=== PATIENT | male | born 1955 | race Two or more races ===

== ENCOUNTER 2020-03-09 11:14 | Inpatient (IN) | payer OTHER ==
[~2020-03-09] VITALS: Ht 177.8 cm; Wt 82.2 kg
[2020-03-09 12:00] LABS: Basophils # (auto) 0 10 ^3/uL (0-0.2); Basophils % (auto) 0.5 % (0.0-2.0); Eosinophils # (auto) 0.1 10 ^3/uL (0-0.8); Eosinophils % (auto) 0.8 % (0.0-7.0); Lymphocytes # (auto) 0.8 10 ^3/uL (0.4-5.4); Lymphocytes % (auto) 11.7 % (10.0-50.0); Mean Corpuscular Hemoglobin 33.2 pg (28.0-32.0); Mean Corpuscular Hgb Conc. 33.4 g/dL (32.0-36.0); Mean Corpuscular Volume 99.5 fL (80.0-100.0); Monocytes # (auto) 0.6 10 ^3/uL (0-1.3); Monocytes % (auto) 9.5 % (0.0-12.0); Neutrophils # (auto) 5.1 10 ^3/uL (1.6-8.6); Neutrophils % (auto) 77.5 % (37.0-80.0); Nucleated Red Blood Cells % 0.1 %; Platelet Count (auto) 228 10^3/uL (140-450); Red Blood Cells 3.92 10^6/uL (4.5-5.90); Red Cell Distribution Width 13.2 % (11.8-14.3); White Blood Cell 6.6 10^3/uL (4.4-10.8)
[2020-03-09 12:37] LABS: Albumin 2.7 g/dL (3.4-5.0); Calcium 8.5 mg/dL (8.5-10.1); Potassium 4.4 mmol/L (3.5-5.1)
[2020-03-09 12:44] LABS: Bilirubin, Total 0.7 mg/dL (0.2-1.0)
[2020-03-09] MEDS ORDERED: ASCORBIC ACID 500 MG TAB PO ONE (13:00)
[2020-03-09] MEDS ORDERED: DexAMETHasone SOD PHOS 10MG/1ML VIAL INJ IV ONE (13:00)
[2020-03-09] MEDS ORDERED: PANTOPRAZOLE 40 MG/10 ML VIAL INJ IV ONE (13:00)
[2020-03-09] MEDS ORDERED: ENOXAPARIN SOD 100 MG/1 ML SYRINGE SC ONE ×2 (13:00→14:15)
[2020-03-09] MEDS ORDERED: ZINC SULFATE 220mg CAP or TAB PO ONE (13:00)
[2020-03-09] MEDS ORDERED: DOXYCYCLINE 100MG/250ML 250 ML IV ONE (13:15)
[2020-03-09] MEDS ORDERED: LORazepam 2MG/ML-1ML VIAL IV PRN (14:15)
[2020-03-09] MEDS ORDERED: LACTATED RINGER'S 2,450 ML IV ONE (14:15)
[2020-03-09] MEDS ORDERED: NITROGLYCERIN 0.4 MG SL TAB SL PRN (14:15)
[2020-03-09] MEDS ORDERED: VANCOMYCIN PER PHARMACY 1,000 MG IV SCH (14:15)
[2020-03-09] MEDS ORDERED: MORPHINE SULF INJ 2 MG/ML SYRINGE 1ML IV PRN (14:15)
[2020-03-09] MEDS ORDERED: MORPHINE SULFATE 4 MG/ML SYR/VIAL IV PRN (14:15)
[2020-03-09 14:38] LABS: INR 0.96 (0.9-1.15); Partial Thromboplastin Time 33.6 sec (23.64-32.05)
[2020-03-09] MEDS ORDERED: VANCOMYCIN 1GM/250ML 250 ML IV ONE (15:00)
[2020-03-09 16:20] VITALS: BP 132/79
[2020-03-09 17:00] VITALS: BP 132/79
[2020-03-09] MEDS: HYDROCORTISONE SOD SUCC 100 MG/2ML INJ VIAL IV SCH (17:30)
[2020-03-09] MEDS: PIPERACILLIN-TAZOB 3.375GM 100 ML IV SCH (17:30)
[2020-03-09] MEDS ORDERED: PIPERACILLIN-TAZOB 3.375GM 3.375 GM in D5W 5% 100 ML IV SCH (18:00)
[2020-03-09 18:05] LABS: Magnesium 2.1 mg/dL (1.6-2.6)
[2020-03-09 18:12] LABS: Urine Bacteria NONE SEEN /hpf (None Seen); Urine Blood Negative /uL (Negative); Urine Specific Gravity 1.005 (1.001-1.035); Urine WBC <1 /hpf (0 - 3)
[2020-03-09 22:00] VITALS: BP 132/79
[2020-03-09] MEDS: FAMOTIDINE (10MG/ML) 2ML VL IV SCH (22:38)
[2020-03-09] MEDS: ENOXAPARIN SOD 80 MG/0.8ML SYRINGE SC SCH (22:38)
[2020-03-10] MEDS: SODIUM CHLORIDE 0.9% 1,000 ML IV SCH ×3 (01:30→18:05)
[2020-03-10] MEDS ORDERED: FUROSEMIDE 20 MG/2 ML VIAL IV ONE (01:30)
[2020-03-10] MEDS ORDERED: FOLIC ACID 1 MG TAB PO ONE (01:45)
[2020-03-10] MEDS ORDERED: MULTIPLE VITAMIN TAB PO ONE (01:45)
[2020-03-10] MEDS ORDERED: THIAMINE HCL 100 MG TAB PO ONE (01:45)
[2020-03-10] MEDS: VANCOMYCIN 1GM/250ML 250 ML IV SCH ×2 (05:00→17:00)
[2020-03-10 05:36] VITALS: BP 156/101
[2020-03-10] MEDS ORDERED: FUROSEMIDE 20 MG/2 ML VIAL IV SCH (06:00)
[2020-03-10] MEDS: HYDROCORTISONE SOD SUCC 100 MG/2ML INJ VIAL IV SCH ×5 (06:00→23:56)
[2020-03-10] MEDS: PIPERACILLIN-TAZOB 3.375GM 100 ML IV SCH ×5 (06:00→23:56)
[2020-03-10 08:00] VITALS: BP 154/100
[2020-03-10 08:18] LABS: Basophils # (auto) 0 10 ^3/uL (0-0.2); Eosinophils # (auto) 0 10 ^3/uL (0-0.8); Hematocrit 37.9 % (41.0-53.0); Hemoglobin 12.7 g/dL (13.5-17.5); Lymphocytes # (auto) 0.5 10 ^3/uL (0.4-5.4); Lymphocytes % (auto) 6.6 % (10.0-50.0); Mean Corpuscular Hemoglobin 33.5 pg (28.0-32.0); Mean Corpuscular Hgb Conc. 33.6 g/dL (32.0-36.0); Mean Corpuscular Volume 99.6 fL (80.0-100.0); Monocytes # (auto) 0.6 10 ^3/uL (0-1.3); Monocytes % (auto) 7.9 % (0.0-12.0); Neutrophils # (auto) 6.6 10 ^3/uL (1.6-8.6); Neutrophils % (auto) 85.5 % (37.0-80.0); Nucleated Red Blood Cells % 0.1 %; Platelet Count (auto) 259 10^3/uL (140-450); Red Cell Distribution Width 13.4 % (11.8-14.3); White Blood Cell 7.7 10^3/uL (4.4-10.8)
[2020-03-10 08:30] VITALS: BP 155/85
[2020-03-10 08:36] LABS: Albumin 2.5 g/dL (3.4-5.0); BUN/Creatinine Ratio 13.6; Calcium 8.6 mg/dL (8.5-10.1); INR 1.02 (0.9-1.15); Magnesium 2.2 mg/dL (1.6-2.6); Partial Thromboplastin Time 35.5 sec (23.64-32.05); Phosphorus 3.2 mg/dL (2.5-4.90)
[2020-03-10 08:42] LABS: Bilirubin, Total 0.6 mg/dL (0.2-1.0); Total Protein 6.9 g/dL (6.4-8.2)
[2020-03-10] MEDS: FAMOTIDINE (10MG/ML) 2ML VL IV SCH ×2 (10:22→22:09)
[2020-03-10] MEDS: FOLIC ACID 1 MG TAB PO SCH (10:22)
[2020-03-10] MEDS: THIAMINE HCL 100 MG TAB PO SCH (10:23)
[2020-03-10] MEDS: MULTIPLE VITAMIN TAB PO SCH (10:24)
[2020-03-10] MEDS: METOPROLOL TARTRATE 25 MG TAB PO SCH ×2 (10:24→22:10)
[2020-03-10] MEDS: ENOXAPARIN SOD 80 MG/0.8ML SYRINGE SC SCH ×2 (10:25→22:11)
[2020-03-10] MEDS: LISINOPRIL 10 MG TAB PO SCH (10:25)
[2020-03-10 11:26] LABS: Cholesterol 129 mg/dL (< 200)
[2020-03-10 11:30] LABS: HDL Cholesterol 36 mg/dL (40-59); LDL Cholesterol 84 mg/dL (< 100); Triglycerides 96 mg/dL (< 150)
[2020-03-10 12:00] VITALS: BP 119/81
[2020-03-10 22:00] VITALS: BP 117/75
[2020-03-10] MEDS ORDERED: ALPRAZolam 0.5 MG TAB PO PRN (22:00)
[2020-03-11] VITALS (7 sets, daily range): BP systolic 126–155; BP diastolic 79–105
[2020-03-11] MEDS: SODIUM CHLORIDE 0.9% 1,000 ML IV SCH ×2 (02:44→10:04)
[2020-03-11] MEDS: VANCOMYCIN 1GM/250ML 250 ML IV SCH (05:00)
[2020-03-11] MEDS: HYDROCORTISONE SOD SUCC 100 MG/2ML INJ VIAL IV SCH ×3 (05:17→13:44)
[2020-03-11] MEDS: PIPERACILLIN-TAZOB 3.375GM 100 ML IV SCH ×2 (05:43→13:44)
[2020-03-11] MEDS: FAMOTIDINE (10MG/ML) 2ML VL IV SCH ×2 (10:04→22:08)
[2020-03-11] MEDS: THIAMINE HCL 100 MG TAB PO SCH (10:05)
[2020-03-11] MEDS: FOLIC ACID 1 MG TAB PO SCH (10:05)
[2020-03-11] MEDS: MULTIPLE VITAMIN TAB PO SCH (10:06)
[2020-03-11] MEDS: LISINOPRIL 10 MG TAB PO SCH (10:08)
[2020-03-11] MEDS: METOPROLOL TARTRATE 25 MG TAB PO SCH ×2 (10:08→22:09)
[2020-03-11] MEDS: ENOXAPARIN SOD 80 MG/0.8ML SYRINGE SC SCH ×2 (10:09→22:09)
[2020-03-11 10:16] LABS: Basophils # (auto) 0 10 ^3/uL (0-0.2); Basophils % (auto) 0.1 % (0.0-2.0); Eosinophils # (auto) 0 10 ^3/uL (0-0.8); Hematocrit 40.7 % (41.0-53.0); Hemoglobin 13.4 g/dL (13.5-17.5); Lymphocytes # (auto) 0.9 10 ^3/uL (0.4-5.4); Lymphocytes % (auto) 8.3 % (10.0-50.0); Mean Corpuscular Hemoglobin 33.1 pg (28.0-32.0); Mean Corpuscular Volume 100.3 fL (80.0-100.0); Monocytes # (auto) 1.3 10 ^3/uL (0-1.3); Monocytes % (auto) 11.6 % (0.0-12.0); Neutrophils # (auto) 9.2 10 ^3/uL (1.6-8.6); Platelet Count (auto) 302 10^3/uL (140-450); Red Blood Cells 4.06 10^6/uL (4.5-5.90); Red Cell Distribution Width 13.4 % (11.8-14.3); White Blood Cell 11.5 10^3/uL (4.4-10.8)
[2020-03-11 10:36] LABS: Potassium 3.6 mmol/L (3.5-5.1)
[2020-03-11 10:49] LABS: BUN/Creatinine Ratio 14.3; CRP High Sensitivity 7.27 mg/dL (< 0.3)
[2020-03-11] MEDS ORDERED: VANCOMYCIN 1GM/250ML 250 ML IV SCH (13:00)
[2020-03-11] MEDS: ALBUTEROL SULF HFA 90MCG INH 200DOSE IN SCH ×3 (17:15→23:11)
[2020-03-11] MEDS ORDERED: IPRATROPIUM BROM 0.5 MG/2.5ML INH SOL NEB SCH (17:15)
[2020-03-11] MEDS: ASCORBIC ACID 500 MG TAB PO SCH (17:15)
[2020-03-11] MEDS: DOXYCYCLINE 100 MG TAB/CAP PO SCH (22:08)
[2020-03-11] MEDS: methylPREDNISolone SOD SUCC 40 MG/ML VL IV SCH (22:09)
[2020-03-11] MEDS ORDERED: ALBUTEROL SULFATE 90 MCG MDI IN ONE (22:21)
[2020-03-12 05:00] VITALS: BP 137/76
[2020-03-12 07:08] LABS: BUN/Creatinine Ratio 23.5; Calcium 8.7 mg/dL (8.5-10.1); Potassium 3.9 mmol/L (3.5-5.1)
[2020-03-12] MEDS: ALBUTEROL SULF HFA 90MCG INH 200DOSE IN SCH ×3 (07:30→22:48)
[2020-03-12 07:43] LABS: CRP High Sensitivity 5.64 mg/dL (< 0.3)
[2020-03-12 08:00] VITALS: BP 146/96
[2020-03-12 09:00] VITALS: BP 146/96
[2020-03-12] MEDS: FAMOTIDINE (10MG/ML) 2ML VL IV SCH ×2 (10:00→22:47)
[2020-03-12] MEDS: methylPREDNISolone SOD SUCC 40 MG/ML VL IV SCH ×3 (10:00→22:48)
[2020-03-12] MEDS: FOLIC ACID 1 MG TAB PO SCH (10:00)
[2020-03-12] MEDS: THIAMINE HCL 100 MG TAB PO SCH (10:01)
[2020-03-12] MEDS: METOPROLOL TARTRATE 25 MG TAB PO SCH ×2 (10:02→22:48)
[2020-03-12] MEDS: MULTIPLE VITAMIN TAB PO SCH (10:03)
[2020-03-12] MEDS: ASCORBIC ACID 500 MG TAB PO SCH (10:04)
[2020-03-12] MEDS: DOXYCYCLINE 100 MG TAB/CAP PO SCH ×2 (10:04→22:48)
[2020-03-12] MEDS: LISINOPRIL 10 MG TAB PO SCH (10:06)
[2020-03-12] MEDS: ENOXAPARIN SOD 80 MG/0.8ML SYRINGE SC SCH (10:07)
[2020-03-12 12:04] LABS: Basophils # (auto) 0 10 ^3/uL (0-0.2); Basophils % (auto) 0.1 % (0.0-2.0); Eosinophils # (auto) 0 10 ^3/uL (0-0.8); Hematocrit 37.3 % (41.0-53.0); Hemoglobin 12.7 g/dL (13.5-17.5); Lymphocytes # (auto) 0.8 10 ^3/uL (0.4-5.4); Lymphocytes % (auto) 8.8 % (10.0-50.0); Mean Corpuscular Hemoglobin 33.6 pg (28.0-32.0); Mean Corpuscular Hgb Conc. 33.9 g/dL (32.0-36.0); Mean Corpuscular Volume 99.2 fL (80.0-100.0); Monocytes # (auto) 1.2 10 ^3/uL (0-1.3); Neutrophils # (auto) 7.2 10 ^3/uL (1.6-8.6); Neutrophils % (auto) 78.1 % (37.0-80.0); Nucleated Red Blood Cells % 0.1 %; Platelet Count (auto) 332 10^3/uL (140-450); Red Blood Cells 3.77 10^6/uL (4.5-5.90); Red Cell Distribution Width 13.4 % (11.8-14.3); White Blood Cell 9.3 10^3/uL (4.4-10.8)
[2020-03-12 13:00] VITALS: BP 128/69
[2020-03-12 17:00] VITALS: BP 134/75
[2020-03-12] MEDS: diphenhdrAMINE HCL 50 MG/1 ML VL IV SCH (18:09)
[2020-03-12] MEDS: ACETAMINOPHEN 650 mg PER 20 mL UD PO SCH (18:12)
[2020-03-12] MEDS: TOCILIZUMAB 400 MG in SODIUM CHL 0.9% 80 ML IV SCH (18:42)
[2020-03-12] MEDS ORDERED: SODIUM CHLORIDE 0.9% 500 ML IV ONE (20:15)
[2020-03-12 22:00] VITALS: BP 146/96
[2020-03-13 05:00] VITALS: BP 159/74
[2020-03-13] MEDS: ALBUTEROL SULF HFA 90MCG INH 200DOSE IN SCH ×3 (07:17→22:46)
[2020-03-13 08:00] VITALS: BP 146/69
[2020-03-13] MEDS: methylPREDNISolone SOD SUCC 40 MG/ML VL IV SCH ×3 (08:26→22:46)
[2020-03-13] MEDS: ACETAMINOPHEN 650 mg PER 20 mL UD PO SCH (08:26)
[2020-03-13] MEDS: diphenhdrAMINE HCL 50 MG/1 ML VL IV SCH (08:26)
[2020-03-13 09:00] VITALS: BP 146/69
[2020-03-13] MEDS: TOCILIZUMAB 400 MG in SODIUM CHL 0.9% 80 ML IV SCH (09:00)
[2020-03-13 09:49] LABS: Basophils # (auto) 0 10 ^3/uL (0-0.2); Basophils % (auto) 0.1 % (0.0-2.0); Eosinophils # (auto) 0 10 ^3/uL (0-0.8); Hematocrit 38.2 % (41.0-53.0); Hemoglobin 12.8 g/dL (13.5-17.5); Lymphocytes # (auto) 0.8 10 ^3/uL (0.4-5.4); Lymphocytes % (auto) 6.8 % (10.0-50.0); Mean Corpuscular Hemoglobin 33.2 pg (28.0-32.0); Mean Corpuscular Hgb Conc. 33.5 g/dL (32.0-36.0); Mean Corpuscular Volume 99.2 fL (80.0-100.0); Monocytes # (auto) 1.2 10 ^3/uL (0-1.3); Monocytes % (auto) 10.7 % (0.0-12.0); Neutrophils # (auto) 9.3 10 ^3/uL (1.6-8.6); Neutrophils % (auto) 82.4 % (37.0-80.0); Nucleated Red Blood Cells % 0.1 %; Platelet Count (auto) 412 10^3/uL (140-450); Red Blood Cells 3.84 10^6/uL (4.5-5.90); Red Cell Distribution Width 13.6 % (11.8-14.3); White Blood Cell 11.3 10^3/uL (4.4-10.8)
[2020-03-13 10:05] LABS: Potassium 3.7 mmol/L (3.5-5.1)
[2020-03-13 10:17] LABS: CRP High Sensitivity 2.71 mg/dL (< 0.3); Calcium 8.9 mg/dL (8.5-10.1)
[2020-03-13] MEDS: FAMOTIDINE (10MG/ML) 2ML VL IV SCH ×2 (10:20→22:46)
[2020-03-13] MEDS: FOLIC ACID 1 MG TAB PO SCH (10:20)
[2020-03-13] MEDS: THIAMINE HCL 100 MG TAB PO SCH (10:22)
[2020-03-13] MEDS: DOXYCYCLINE 100 MG TAB/CAP PO SCH ×2 (10:23→22:46)
[2020-03-13] MEDS: METOPROLOL TARTRATE 25 MG TAB PO SCH ×2 (10:23→22:51)
[2020-03-13] MEDS: ASCORBIC ACID 500 MG TAB PO SCH (10:23)
[2020-03-13] MEDS: LISINOPRIL 10 MG TAB PO SCH (10:24)
[2020-03-13] MEDS: ENOXAPARIN SOD 40 MG/0.4 ML SYRINGE SC SCH (10:25)
[2020-03-13 13:00] VITALS: BP 155/83
[2020-03-13 17:00] VITALS: BP 164/85
[2020-03-13 22:00] VITALS: BP 153/99
[2020-03-14] VITALS (7 sets, daily range): BP systolic 129–146; BP diastolic 59–93
[2020-03-14] MEDS: ALBUTEROL SULF HFA 90MCG INH 200DOSE IN SCH ×5 (02:25→18:56)
[2020-03-14 07:16] LABS: Hematocrit 39.3 % (41.0-53.0); Hemoglobin 13.2 g/dL (13.5-17.5); Mean Corpuscular Hemoglobin 33.5 pg (28.0-32.0); Mean Corpuscular Hgb Conc. 33.5 g/dL (32.0-36.0); Mean Corpuscular Volume 99.9 fL (80.0-100.0); Platelet Count (auto) 436 10^3/uL (140-450); Red Blood Cells 3.94 10^6/uL (4.5-5.90); Red Cell Distribution Width 13.4 % (11.8-14.3); White Blood Cell 11.2 10^3/uL (4.4-10.8)
[2020-03-14 07:29] LABS: Calcium 8.7 mg/dL (8.5-10.1); Potassium 3.8 mmol/L (3.5-5.1)
[2020-03-14 07:39] LABS: Basophils % (manual) 0 (0.0-2.0); Blast Cells 0; Eosinophils % (manual) 0 (0-7); Promyelocytes % 0; Reactive Lymphocytes 0
[2020-03-14 07:40] LABS: BUN/Creatinine Ratio 22.2; CRP High Sensitivity 1.47 mg/dL (< 0.3)
[2020-03-14 08:58] LABS: Band Neutrophils % (manual) 1; Lymphocytes % (manual) 7 (10.0-50.0); Metamyelocytes % 2; Monocytes % (manual) 2 (0-12)
[2020-03-14 08:59] LABS: Myelocytes % 2
[2020-03-14] MEDS: methylPREDNISolone SOD SUCC 40 MG/ML VL IV SCH ×2 (10:09→22:48)
[2020-03-14] MEDS: FOLIC ACID 1 MG TAB PO SCH (10:09)
[2020-03-14] MEDS: FAMOTIDINE (10MG/ML) 2ML VL IV SCH ×2 (10:09→22:48)
[2020-03-14] MEDS: THIAMINE HCL 100 MG TAB PO SCH (10:10)
[2020-03-14] MEDS: METOPROLOL TARTRATE 25 MG TAB PO SCH ×2 (10:11→22:48)
[2020-03-14] MEDS: DOXYCYCLINE 100 MG TAB/CAP PO SCH ×2 (10:11→22:48)
[2020-03-14] MEDS: LISINOPRIL 10 MG TAB PO SCH (10:12)
[2020-03-14] MEDS: ASCORBIC ACID 500 MG TAB PO SCH (10:12)
[2020-03-14] MEDS: ENOXAPARIN SOD 40 MG/0.4 ML SYRINGE SC SCH (10:13)
[2020-03-15] MEDS: ALBUTEROL SULF HFA 90MCG INH 200DOSE IN SCH (02:53)
[2020-03-15 05:43] VITALS: BP 128/77
[2020-03-15] MEDS ORDERED: ALBUTEROL SULF HFA 90MCG INH 200DOSE IN SCH (06:00)
[2020-03-15 08:00] VITALS: BP 128/84
[2020-03-15 09:00] VITALS: BP 128/84
[2020-03-15] MEDS: FAMOTIDINE (10MG/ML) 2ML VL IV SCH (10:06)
[2020-03-15] MEDS: methylPREDNISolone SOD SUCC 40 MG/ML VL IV SCH (10:07)
[2020-03-15] MEDS: FOLIC ACID 1 MG TAB PO SCH (10:08)
[2020-03-15] MEDS: THIAMINE HCL 100 MG TAB PO SCH (10:10)
[2020-03-15] MEDS: METOPROLOL TARTRATE 25 MG TAB PO SCH (10:11)
[2020-03-15] MEDS: DOXYCYCLINE 100 MG TAB/CAP PO SCH (10:11)
[2020-03-15] MEDS: ASCORBIC ACID 500 MG TAB PO SCH (10:12)
[2020-03-15] MEDS: LISINOPRIL 10 MG TAB PO SCH (10:14)
[2020-03-15] MEDS: ENOXAPARIN SOD 40 MG/0.4 ML SYRINGE SC SCH (10:15)
[2020-03-15] MEDS ORDERED: PRED20TA2 PO (12:09)
[2020-03-15] MEDS ORDERED: FOLI1TAB6 PO (12:09)
[2020-03-15] MEDS ORDERED: MET25T PO (12:09)
[2020-03-15] MEDS ORDERED: THIA100T10 PO (12:09)
[2020-03-15] MEDS ORDERED: LISI10TA6 PO (12:09)
[2020-03-15] MEDS ORDERED: DOX100T PO (12:09)
[2020-03-15] MEDS ORDERED: ALBUAER3 IN (12:09)
[2020-03-15] MEDS ORDERED: IPRA0.00 NEB (12:09)
[2020-03-15 12:38] LABS: Hematocrit 41.6 % (41.0-53.0); Hemoglobin 13.7 g/dL (13.5-17.5); Mean Corpuscular Hemoglobin 33.4 pg (28.0-32.0); Mean Corpuscular Volume 101.2 fL (80.0-100.0); Platelet Count (auto) 495 10^3/uL (140-450); Red Blood Cells 4.11 10^6/uL (4.5-5.90); Red Cell Distribution Width 13.8 % (11.8-14.3); White Blood Cell 9.8 10^3/uL (4.4-10.8)
[2020-03-15 12:42] LABS: Basophils % (manual) 0 (0.0-2.0); Blast Cells 0; Eosinophils % (manual) 0 (0-7); Promyelocytes % 0; Reactive Lymphocytes 0
[2020-03-15 12:50] LABS: BUN/Creatinine Ratio 31.8; CRP High Sensitivity 0.82 mg/dL (< 0.3); Potassium 3.8 mmol/L (3.5-5.1)
[2020-03-15 12:55] VITALS: BP 139/84
[2020-03-15 13:24] LABS: Band Neutrophils % (manual) 2; Lymphocytes % (manual) 11 (10.0-50.0); Metamyelocytes % 2; Monocytes % (manual) 7 (0-12); Myelocytes % 1
== END 2020-03-15 03:00 | disposition home health service (06) | DRG 177 ==
LOC: ER 11:14 → TELE 11:15 → TELE-EAST 15:43
PROVIDERS: ADMIT Hospitalist; ATTEND Internal Medicine
DX: U07.1 COVID-19 (principal); J12.89 Other viral pneumonia; I21.A1 Myocardial infarction type 2; J96.01 Acute respiratory failure with hypoxia; E43 Unspecified severe protein-calorie malnutrition; E87.1 Hypo-osmolality and hyponatremia; E87.2 Acidosis; J98.11 Atelectasis; D50.9 Iron deficiency anemia, unspecified; D52.9 Folate deficiency anemia, unspecified; D63.8 Anemia in other chronic diseases classified elsewhere; E11.9 Type 2 diabetes mellitus without complications; I11.9 Hypertensive heart disease without heart failure; Z68.26 Body mass index [BMI] 26.0-26.9, adult; Z79.01 Long term (current) use of anticoagulants; Z79.4 Long term (current) use of insulin
CPT/HCPCS: 36415; 36600; 71045; 71275; 80048; 80053; 80061; 80202; 81001; 82728; 82805; 83036; 83605; 83615; 83735; 83880; 84100; 84443; 84484; 85007; 85025; 85027; 85379; 85610; 85730; 86141; 86850; 86900; 86901; 87040; 87070; 87086; 87804; 87880; 93005; 93970; 94640; 96372; 96374; 96375; C9113; G0378; J1100; J2543; J3490; J7060

== ENCOUNTER 2025-07-17 08:28 | Emergency (ER) | payer OTHER ==
[~2025-07-17] VITALS: Ht 162.6 cm; Wt 84.3 kg
[~2025-07-17 08:28] MED LIST: ALBUAER3 IN; DOX100T PO; FOLI-119 PO; IPRA0.00 NEB; LISI10TA34 PO; MET25T PO; PRED20TA2 PO; THIA100T10 PO
[2025-07-17 08:47] VITALS: TEMP 97.8
--- NOTE | 2025-07-17 08:50 | ED.PDOC ---
General HPI Comments A 70 YEAR OLD MALE PRESENTS TO THE ED WITH COMPLAINT OF LEFT FLANK PAIN. PATIENT STATES HE WOKE UP TODAY AND BEGAN EXPERIENCING LEFT FLANK PAIN WITH NAUSEA. PATIENT DENIES DYSURIA, HEMATURIA, FEVER, CHILLS, SHORTNESS OF BREATH, CHEST PAIN, ABDOMINAL PAIN, VOMITING, HEADACHE, OR OTHER COMPLAINTS. NO OTHER SYMPTOMS OR MODIFYING FACTORS AT THIS TIME. PATIENT IS ALERT, ORIENTED X 4, AND HAS STEADY GAIT. Chief Complaint: Flank Pain Time Seen by MD: 08:33 Primary Care Provider: JENNIFER Reviewed notes: Nurses Notes, Medications, Allergies Allergies: Coded Allergies: NO KNOWN ALLERGIES (Unverified , 05/04/12) Home Meds Active Scripts Folic Acid (Folic Acid) 1 Mg Tab, 1 MG PO DAILY, #30 TAB Prov:ANGELIQUE OCHAO MD 03/15/20 Prednisone (Prednisone) 20 Mg Tab, 1 DOSE PO UD, #13 TAB Take 60mg dailyx2 days then 40mg dailyx2 days then 20mg dailyx2 days then 10mg dailyx2 days Prov:ANGELIQUE OCHOA MD 03/15/20 Ipratropium-Albuterol (Ipratropium [place]/Albut) 1 Catherine Catherine, 1 CATHERINE NEB Q6HPRN PRN, #120 DOSE Prov:ANGELIQUE OCHOA MD 03/15/20 Albuterol Sulfate (VENTOLIN MDI) 90 Mcg Ih, 90 MCG IN Q6HPRN PRN, #1 INHALER Prov:ANGELIQUE OCHOA MD 03/15/20 Doxycycline Monohydrate (Doxycycline Monohydrate) 100 Mg Tab, 100 MG PO Q12HR, #6 TAB Prov:ANGELIQUE OCHOA MD 03/15/20 Lisinopril (Lisinopril) 10 Mg Tab, 10 MG PO DAILY, #30 TAB Prov:ANGELIQUE OCHOA MD 03/15/20 Thiamine Hcl (VITAMIN B-1) 100 Mg Tb, 50 MG PO DAILY, #30 TAB Prov:ANGELIQUE OCHOA MD 03/15/20 Metoprolol Tartrate (Lopressor) 25 Mg Tb, 12.5 MG PO BID, #60 TAB Prov:ANGELIQUE OCHOA MD 03/15/20 Information Source: Patient Mode of Arrival: Ambulatory Severity: Moderate Inability to void: None Timing: Hours Duration: Since onset Prehospital treatment: None Onset: Spontaneous Symptoms: Other (LEFT FLANK PAIN) History of: None Location: (L)Flank Penile discharge: None Modifying factors: None associated signs and symptoms: Nausea Past Medical History PAST MEDICAL HISTORY: HTN Past Medical History (Other): CHRONIC LOW BACK PAIN Surgical History: Appendectomy Family History Family History: No family hx of Cancer, No family hx of DM, No family hx of Heart howie Social History Smoker: Non-Smoker Alcohol: Occasionally Drugs: Denies Drug Use Lives In: Home Constitutional: denies: chills, diaphoresis, fatigue, fever, malaise, sweats, weakness, others EENTM: denies: blurred vision, double vision, ear bleeding, ear discharge, ear drainage, ear pain, ear ringing, eye pain, eye redness, hearing loss, mouth pain, mouth swelling, nasal discharge, nose bleeding, nose congestion, nose pain, photophobia, tearing, throat pain, throat swelling, voice changes, others Respiratory: denies: cough, hemoptysis, orthopnea, SOB at rest, shortness of breath, SOB with excertion, stridor, wheezing, others Cardiovascular: denies: chest pain, dizzy spells, diaphoresis, Dyspnea on exertion, edema, irregular heart beat, left arm pain, lightheadedness, palpitations, PND, syncope, others Gastrointestinal: denies: abdomen distended, abdominal pain, blood streaked bowels, constipated, diarrhea, dysphagia, difficulty swallowing, hematemesis, melena, nausea, poor appetite, poor fluid intake, rectal bleeding, rectal pain, vomiting, others Genitourinary: reports: flank pain (LEFT FLANK PAIN); denies: burning, dysuria, frequency, hematuria, incontinence, penile discharge, penile sore, pain, testicle pain, testicle swelling, urgency, others Neurological: denies: dizziness, fainting, headache, left sided numbness, left sided weakness, numbness, paresthesia, pre-existing deficit, right sided numbness, right sided weakness, seizure, speech problems, tingling, tremors, weakness, others Musculoskeletal: denies: back pain, gout, joint pain, joint swelling, muscle pain, muscle stiffness, neck pain, others Integumetry: denies: bruises, change in color, change in hair/nails, dryness, laceration, lesions, lumps, rash, wounds, others Allergic/Immunocompromised: denies: Difficulty Healing, Frequent Infections, Hives, Itching, others Hematologic/Lymphatic: denies: anemia, blood clots, easy bleeding, easy bruising, swollen glands, others Endocrine: denies: excessive hunger, excessive sweating, excessive thirst, excessive urination, flushing, intolerance to cold, intolerance to heat, unexplained weight gain, unexplained weight loss, others Psychiatric: denies: anxiety, bipolar disorder, depression, hopeless, panic disorder, schizophrenia, sleepless, suicidal, others All Other Systems: Reviewed and Negative Physical Exam General Appearance: No Apparent Distress, Normal HEENT: Normal ENT Inspection, PERRL/EOMI, Pharynx Normal, TMs Normal Neck: Full Range of Motion, Non-Tender, Normal, Normal Inspection Respiratory: Chest Non-Tender, Lungs Clear, No Accessory Muscle Use, No Respiratory Distress, Normal Breath Sounds Cardiovascular: No Edema, No JVD, No Murmur, No Gallop, Normal Peripheral Pulses, Regular Rate/Rhythm Breast Exam: Deferred Gastrointestinal: No Organomegaly, No Pulsatile Mass, Normal Bowel Sounds, Soft, Tenderness (LEFT FLANK, NO GUARDING AND REBOUND TENDERNESS, NO ACVA TENDERNESS. ) Genitalia: Deferred Pelvic: Deferred Rectal: Deferred Extremities: No calf tenderness, Normal capillary refill, Normal inspection, Normal range of motion, Non-tender, No pedal edema Musculoskeletal : Apperance: Normal Neurologic: Alert, first coat sander II-XII nml as Tested, No Motor Deficits, Normal Affect, Normal Mood, No Sensory Deficits Cerebellar Function: Normal Reflexes: Normal Skin: Dry, Normal Color, Warm Peripheral Pulses: 2+ carotid (R), 2+ carotid (L) Lymphatic: No Adenopathy Was a procedure done? Was a procedure done?: No Differential Diagnosis Kidney stone (Female): N/A Kidney stone (Male): DJD, Renal failure, Strain, Urolithiasis, Urinary tract infection Penile/Scrotal: N/A Urinary Problem (Male): Bladder Outlet, Prostatitis, Urethritis, Urinary Retention, Urolithiasis, UTI, N/A Urinary Problem (Female): N/A X-Ray, Labs, Meds, VS Vital Signs Date Time Temp Pulse Resp B/P (MAP) Pulse Ox O2 Delivery O2 Flow Rate FiO2 07/17/25 08:54 177/101 07/17/25 08:47 97.8 65 16 177/101 (126) 100 97.8 07/17/25 08:47 65 16 100 Room Air 07/17/25 08:36 97.5 67 16 158/90 100 97.5 Lab Test 07/17/25 10:56 07/17/25 09:29 Range/Units Urine Color Yellow Yellow Urine Clarity Clear Clear Urine pH 7.5 5.0-9.0 Urine Specific [place] 1.019 1.001-1.035 Urine Protein Negative Negative Urine Ketones Negative Negative Urine Blood 2+ H Negative /uL Urine Nitrite Negative Negative Urine Bilirubin Negative Negative Urine Urobilinogen Normal Negative mg/dL Urine Leukocyte Esterase Negative Negative /uL Urine RBC 67 0 - 3 /hpf Urine Microscopic WBC 2 0-3 /HPF Urine Squamous Epithelial Cells None seen <5 /hpf Urine Bacteria None seen None Seen /hpf Urine Mucus Few None Seen Urine Glucose Normal Normal mg/dL White Blood Count 10.9 H 4.4-10.8 10^3/uL Red Blood Count 4.50 4.5-5.90 10^6/uL Hemoglobin 12.2 L 13.5-17.5 g/dL Hematocrit 38.4 L 41.0-53.0 % Mean Corpuscular Volume 85.2 80.0-100.0 fL Mean Corpuscular Hemoglobin 27.1 L 28.0-32.0 pg Mean Corpuscular Hemoglobin Concent 31.8 L 32.0-36.0 g/dL Red Cell Distribution Width 14.9 H 11.8-14.3 % Platelet Count 279 140-450 10^3/uL Mean Platelet Volume 8.1 6.9-10.8 fL Neutrophils (%) (Auto) 77.9 37.0-80.0 % Lymphocytes (%) (Auto) 14.0 10.0-50.0 % Monocytes (%) (Auto) 6.5 0.0-12.0 % Eosinophils (%) (Auto) 1.4 0.0-7.0 % Basophils (%) (Auto) 0.2 0.0-2.0 % Neutrophils # (Auto) 8.5 1.6-8.6 10 ^3/uL Lymphocytes # (Auto) 1.5 0.4-5.4 10 ^3/uL Monocytes # (Auto) 0.7 0-1.3 10 ^3/uL Eosinophils # (Auto) 0.1 0-0.8 10 ^3/uL Basophils # (Auto) 0 0-0.2 10 ^3/uL Nucleated Red Blood Cells 0.0 % Sodium Level 141 136-145 mmol/L Potassium Level 3.8 3.5-5.1 mmol/L Chloride Level 105 98-107 mmol/L Carbon Dioxide Level 27 20-31 mmol/L Anion Gap 9 5-15 Blood Urea Nitrogen 16 9-23 mg/dL Creatinine 1.06 0.700-1.30 mg/dL Glomerular Filtration Rate Calc 75 >90 mL/min BUN/Creatinine Ratio 15.1 10.0-20.0 Serum Glucose 126 H 74-106 mg/dL Calcium Level 9.2 8.7-10.4 mg/dL Total Bilirubin 0.6 0.2-1.0 mg/dL Aspartate Amino Transferase (AST) 22 13-40 U/L Alanine Aminotransferase (ALT) 23 7-40 U/L Alkaline Phosphatase 81 46-116 U/L Total Protein 7.3 5.7-8.2 g/dL Albumin 4.4 3.2-4.8 g/dL Current Medications Medications (Trade) Dose Ordered Sig/Ondina Route Start Time Stop Time Status Last Admin Lisinopril (Zestril Tablet) 40 mg ONCE ONCE PO 07/17/25 09:00 07/17/25 09:01 DC 07/17/25 08:54 Exam: CT CT AB PEL WO CON-NO ORAL OR IV History: LEFT FLANK PAIN. Comparison Study: None. Technique: Multidetector spiral CT of the abdomen and pelvis was performed from lung bases to pubic symphysis. Imaging was performed without intravenous contrast. Coronal and sagittal multiplanar reformats were obtained from the axial data set by the technologist. Radiation Dose : 1. Abdomen/Pelvis: CTDIvol 16.63 mGy, DLP 837.68 mGy*cm. Findings: Evaluation of vasculature and solid organs is limited due to lack of intravenous contrast use. Lung Bases: Lung bases are clear. Visualized portions of the heart and pericardium are unremarkable. Subcentimeter calcified right hilar lymph nodes. Liver: The liver is normal in size. There is a 3.7 low-density lesion in the right hepatic lobe. There are smaller punctate hyperdense lesions in the liver. Diffusely hypoattenuating liver parenchyma consistent with hepatic steatosis. Gallbladder and Biliary Tree: The gallbladder is unremarkable. No intrahepatic or extrahepatic biliary ductal dilatation. Spleen: Unremarkable Pancreas: The pancreas is grossly unremarkable. Adrenal Glands: Unremarkable Kidneys: Mild left hydroureteronephrosis due to 1-2 mm obstructive calculus in the distal left ureter just proximal to the ureterovesical junction. Left renal cysts. Right kidney is unremarkable. GI tract: The stomach is grossly normal in appearance. No evidence of small bowel wall thickening or abnormal dilatation to suggest bowel obstruction. The colon is unremarkable. The appendix is not visualized, however no inflammatory changes in the right lower quadrant to suggest acute appendicitis. Peritoneum/mesentery/retroperitoneum. No evidence of free intraperitoneal air. No ascites. No evidence of suspicious lymphadenopathy. Abdominal Wall: Enlarged prostate measuring 5.3 cm. Vasculature: The visualized abdominal aorta is normal in size and caliber. Evaluation of abdominal and pelvic vessels is limited due to lack of intravenous contrast. There are atherosclerotic calcifications in the aorta. Urinary Bladder: Grossly unremarkable for degree of distention. Pelvic Organs: Unremarkable Musculoskeletal: No aggressive focal bony lesions, acute fractures or dislocation. Grade 1 anterolisthesis noted at L5-S1. IMPRESSION: 1. Mild left hydroureteronephrosis due to 1-2 mm obstructive calculus in the distal left ureter. 2. Prostatomegaly. ATED BY: IVÁN HARRIS MD DICTATED DATE/TIME: 07/17/25 1003 SIGNED BY: IVÁN HARRIS MD SIGNED DATE/TIME: 07/17/25 1003 CC: X-Ray, Labs, Meds, VS Comment EXTERNAL MEDICAL RECORDS REVIEWED: [NONE] INDEPENDENT HISTORIANS: [NONE] SOCIAL DETERMINANTS OF HEALTH: [NONE] LABS ORDERED: CBC, BMP, UA REVIEWED AND INTERPRETED RESULTS: BLOOD 2+ IMAGING ORDERED: CT ABD/PEL TREATMENTS ORDERED: LISINOPRIL 40 MG P.O. PROCEDURES PERFORMED: NONE CRITICAL CARE TIME: NONE I HAVE DISCUSSED THE PATIENT WITH THE ATTENDING PHYSICIAN DR. FITZGERALD AND HE AGREES WITH THE PATIENT'S PLAN OF CARE AND DISPOSITION. BASED ON HISTORY OF PRESENT ILLNESS, AND PHYSICAL EXAM, PATIENT WILL BE DISCHARGED HOME. DISCUSSED PLAN FOR DISCHARGE HOME WITH RX [FLOMAX]. MEDICATION WARNINGS GIVEN. PT HAS PAIN MEDICATION AT HOME. SHARED DECISION MAKING: PATIENT INSTRUCTED TO FOLLOW UP WITH PRIMARY CARE PROVIDER IN 1-2 DAYS FOR RE-EVALUATION OF SYMPTOMS. PATIENT VERBALIZES UNDERSTANDING TO RETURN TO ED FOR NEW OR WORSENING SYMPTOMS OR IF FOLLOW UP WITH PCP CANNOT BE OBTAINED. PATIENT FEELS COMFORTABLE GOING HOME AT THIS TIME. ALL QUESTIONS ADDRESSED AT TIME OF DISCHARGE. Images Reviewed?: Images reviewed and evaluated by me Time of 1ST Reevaluation: 11:47 Reevaluation 1ST: Improved Patient Education/Counseling: Diagnosis, Treatment, Need For Follow Up Family Education/Counseling: Diagnosis, Treatment, Need For Follow Up Medical Screening: No EMC Exist At This Time SEPSIS Sepsis Screen Date sepsis recognized/suspect: Jul 17, 2025 Time Sepsis recognized/suspect: 935 Recent Procedure: No On Antibiotic Therapy: No Respiratory Rate >20: No Heart Rate >90: No Temp<36 C (96.8 F) or >38.3 C: No SBP <90 or MAP <65 mmHG: No New Acute Mental Status Change: No Is the patient on CPAP, BIPAP,: No Physician Orders Ct Ab Pel Wo Con-No Oral Or Iv (07/17/25 08:47) Vital Signs Date Time Temp Pulse Resp B/P (MAP) Pulse Ox O2 Delivery O2 Flow Rate FiO2 07/17/25 08:54 177/101 07/17/25 08:47 97.8 65 16 177/101 (126) 100 97.8 07/17/25 08:47 65 16 100 Room Air 07/17/25 08:36 97.5 67 16 158/90 100 97.5 Laboratory Tests Test 07/17/25 09:29 White Blood Count 10.9 10^3/uL (4.4-10.8) H Medications Medications Dose Ordered Sig/Ondina Route Start Time Stop Time Status Last Admin Dose Admin Lisinopril 40 mg ONCE ONCE PO 07/17/25 09:00 07/17/25 09:01 DC 07/17/25 08:54 Departure 1 Departure Time of Disposition: 11:45 Impression: Primary Impression: Left renal stone Additional Impressions: BPH (benign prostatic hyperplasia) Qualified Codes: N40.0 - Benign prostatic hyperplasia without lower urinary tract symptoms HTN (hypertension) Qualified Codes: I10 - Essential (primary) hypertension Disposition: 01 HOME / SELF CARE / HOMELESS Condition: Stable Additional Instructions: FOLLOW-UP WITH PCP IN 1 TO 2 DAYS FOR REFERRAL TO UROLOGIST. TAKE MEDICATIONS PRESCRIBED. RETURN TO ED FOR ANY NEW OR WORSENING SYMPTOMS. e-Prescriptions Tamsulosin Hcl (Flomax) 0.4 Mg Cap 1 CAP PO DAILY, #30 CAP Prov: TANNER MADDEN 07/17/25 Discharged With: Self Critical Care Note Critical Care Time?: No Stability Stability form required: No I personally scribed for TANNER MADDEN ([email or web address]) on 07/17/25 at 08:50. Electronically submitted by Brian Langley ([email or web address]). I personally scribed for TANNER MADDEN ([email or web address]) on 07/17/25 at 10:13. Electronically submitted by Brian Langley ([email or web address]). I personally scribed for TANNER MADDEN ([email or web address]) on 07/17/25 at 11:36. Electronically submitted by Brian Langley ([email or web address]). TANNER MADDEN Jul 17, 2025 08:50
[2025-07-17] MEDS: LISINOPRIL 20 MG TAB PO ONE (08:54)
[2025-07-17 10:05] LABS: Hematocrit 38.4 % (41.0-53.0); Hemoglobin 12.2 g/dL (13.5-17.5); Mean Corpuscular Hemoglobin 27.1 pg (28.0-32.0); Mean Corpuscular Volume 85.2 fL (80.0-100.0); Nucleated Red Blood Cells % 0.0 %
--- NOTE | 2025-07-17 10:05 | DVH ---
Exam: CT CT AB PEL WO CON-NO ORAL OR IV History: LEFT FLANK PAIN. Comparison Study: None. Technique: Multidetector spiral CT of the abdomen and pelvis was performed from lung bases to pubic symphysis. Imaging was performed without intravenous contrast. Coronal and sagittal multiplanar reformats were obtained from the axial data set by the technologist. Radiation Dose : 1. Abdomen/Pelvis: CTDIvol 16.63 mGy, DLP 837.68 mGy*cm. Findings: Evaluation of vasculature and solid organs is limited due to lack of intravenous contrast use. Lung Bases: Lung bases are clear. Visualized portions of the heart and pericardium are unremarkable. Subcentimeter calcified right hilar lymph nodes. Liver: The liver is normal in size. There is a 3.7 low-density lesion in the right hepatic lobe. There are smaller punctate hyperdense lesions in the liver. Diffusely hypoattenuating liver parenchyma consistent with hepatic steatosis. Gallbladder and Biliary Tree: The gallbladder is unremarkable. No intrahepatic or extrahepatic biliary ductal dilatation. Spleen: Unremarkable Pancreas: The pancreas is grossly unremarkable. Adrenal Glands: Unremarkable Kidneys: Mild left hydroureteronephrosis due to 1-2 mm obstructive calculus in the distal left ureter just proximal to the ureterovesical junction. Left renal cysts. Right kidney is unremarkable. GI tract: The stomach is grossly normal in appearance. No evidence of small bowel wall thickening or abnormal dilatation to suggest bowel obstruction. The colon is unremarkable. The appendix is not visualized, however no inflammatory changes in the right lower quadrant to suggest acute appendicitis. Peritoneum/mesentery/retroperitoneum. No evidence of free intraperitoneal air. No ascites. No evidence of suspicious lymphadenopathy. Abdominal Wall: Enlarged prostate measuring 5.3 cm. Vasculature: The visualized abdominal aorta is normal in size and caliber. Evaluation of abdominal and pelvic vessels is limited due to lack of intravenous contrast. There are atherosclerotic calcifications in the aorta. Urinary Bladder: Grossly unremarkable for degree of distention. Pelvic Organs: Unremarkable Musculoskeletal: No aggressive focal bony lesions, acute fractures or dislocation. Grade 1 anterolisthesis noted at L5-S1. IMPRESSION: 1. Mild left hydroureteronephrosis due to 1-2 mm obstructive calculus in the distal left ureter. 2. Prostatomegaly.
[2025-07-17 10:23] LABS: Alanine Aminotransferase 23 U/L (7-40); Albumin 4.4 g/dL (3.2-4.8); Alkaline Phosphatase 81 U/L (46-116); Anion Gap 9 (5-15); BUN/Creatinine Ratio 15.1 (10.0-20.0); Blood Urea Nitrogen 16 mg/dL (9-23); Calcium 9.2 mg/dL (8.7-10.4); Carbon Dioxide 27 mmol/L (20-31); Chloride 105 mmol/L (98-107); Potassium 3.8 mmol/L (3.5-5.1); Sodium 141 mmol/L (136-145); Total Protein 7.3 g/dL (5.7-8.2)
[2025-07-17 10:24] LABS: Bilirubin, Total 0.6 mg/dL (0.2-1.0)
[2025-07-17 10:27] LABS: Glucose 126 mg/dL (74-106)
[2025-07-17 11:17] LABS: Urine Protein, UAD Negative (Negative)
[2025-07-17] MEDS ORDERED: TAMS-35 PO (11:42)
[2025-07-17 11:46] VITALS: BP 152/78; PULSE 65; RESP 16; O2SAT 100
[2025-07-18] MEDS ORDERED: TRAM50TA2 PO (16:45)
== END 2025-07-17 11:47 | disposition home or self-care (01) ==
LOC: ER 08:28
DX: N40.0 Benign prostatic hyperplasia without lower urinary tract symptoms (principal); N13.2 Hydronephrosis with renal and ureteral calculous obstruction; I10 Essential (primary) hypertension; F10.90 Alcohol use, unspecified, uncomplicated; G89.29 Other chronic pain; Z79.899 Other long term (current) drug therapy; Z90.49 Acquired absence of other specified parts of digestive tract
CPT/HCPCS: 36415; 74176; 80053; 81001; 85025

== ENCOUNTER 2025-07-18 08:23 | Observation (INO) | payer OTHER ==
[~2025-07-18] VITALS: Ht 165.1 cm; Wt 86.6 kg
[~2025-07-18 08:23] MED LIST changes: +TAMS-35 PO
--- NOTE | 2025-07-18 09:40 | ED.PDOC ---
GI ASSESSMENT HPI Comments Mr. Morales is 70 year old male prior medical history of arthritis and hypertension, presents today with chief complaint of left flank pain. The patient states pain began approximately 3 days ago and is described as sharp, constant and progressively worsening, radiating from the left flank towards left groin, intensity 10/10, associated with nausea, vomiting, shortness of breath due to pain, aggravated by lying still, and slightly relieved by tramadol. He denies fever, dysuria, hematuria, chest pain, palpitations, and diarrhea. He presented yesterday to the emergency room, where abdominal CT showed presence of mild left hydroureteronephrosis due to 1-2 mm obstructive calculus in the left distal ureter, with CBC and BMP within normal range, and UA significant for microhematuria. He was discharged with prescription for Flomax and recommendation to see his PCP for referral to Urology. However, due to persistence of pain, he returns for evaluation in the emergency department. On initial evaluation, the patient is uncomfortable due to pain, afebrile, hypertensive, other vitals within normal range, he is able to ambulate with limited difficulty, with no other overt signs of distress. Chief Complaint: Flank Pain Time Seen by MD: 08:56 Primary Care Provider: JENNIFER Allergies: Coded Allergies: NO KNOWN ALLERGIES (Unverified , 05/04/12) Home Meds Active Scripts Tramadol Hcl (Tramadol Hcl) 50 Mg Tab, 50 MG PO Q6HPRN PRN for 5 Days, #20 TAB 0 Refills Take as needed for severe pain. Prov:XIOMARA GARCIA DO 07/18/25 Tamsulosin Hcl (Flomax) 0.4 Mg Cap, 1 CAP PO DAILY, #30 CAP Prov:TANNER MADDEN 07/17/25 Folic Acid (Folic Acid) 1 Mg Tab, 1 MG PO DAILY, #30 TAB Prov:ANGELIQUE OCHOA MD 03/15/20 Prednisone (Prednisone) 20 Mg Tab, 1 DOSE PO UD, #13 TAB Take 60mg dailyx2 days then 40mg dailyx2 days then 20mg dailyx2 days then 10mg dailyx2 days Prov:ANGELIQUE OCHOA MD 03/15/20 Ipratropium-Albuterol (Ipratropium [place]/Albut) 1 Catherine Catherine, 1 CATHERINE NEB Q6HPRN PRN, #120 DOSE Prov:ANGELIQUE COHOA MD 03/15/20 Albuterol Sulfate (VENTOLIN MDI) 90 Mcg Ih, 90 MCG IN Q6HPRN PRN, #1 INHALER Prov:ANGELIQUE OCHOA MD 03/15/20 Doxycycline Monohydrate (Doxycycline Monohydrate) 100 Mg Tab, 100 MG PO Q12HR, #6 TAB Prov:ANGLEIQUE OCHOA MD 03/15/20 Lisinopril (Lisinopril) 10 Mg Tab, 10 MG PO DAILY, #30 TAB Prov:ANGELIQUE OCHOA MD 03/15/20 Thiamine Hcl (VITAMIN B-1) 100 Mg Tb, 50 MG PO DAILY, #30 TAB Prov:ANGELIQUE OCHOA MD 03/15/20 Metoprolol Tartrate (Lopressor) 25 Mg Tb, 12.5 MG PO BID, #60 TAB Prov:ANGELIQUE OCHOA MD 03/15/20 Information Source: Patient, H Medical Record Mode of Arrival: Ambulatory Timing: Days Duration: Since onset Vomitus: Food Particles, Watery Stool: Normal Severity: Moderate Recent Hx of: Urolithiasis Pain Location: Other (Left flank) Modifying Factors: Lying still Associated sign and symptoms: Nausea, Vomiting Past Medical History PAST MEDICAL HISTORY: Arthritis, HTN Surgical History: Appendectomy Surgical History (Other): Nasal polypectomy Family History Family History: Family hx of Cancer Social History Smoker: Non-Smoker Alcohol: Occasionally Drugs: Denies Drug Use Lives In: Home Constitutional: denies: chills, diaphoresis, fatigue, fever, malaise, sweats, weakness EENTM: denies: blurred vision, double vision, ear ringing, nasal discharge, nose congestion, throat pain Respiratory: reports: shortness of breath; denies: cough, hemoptysis, orthopnea Cardiovascular: denies: chest pain, dizzy spells, diaphoresis, Dyspnea on exertion, edema, palpitations Gastrointestinal: reports: abdominal pain, nausea, vomiting; denies: abdomen di stended, blood streaked bowels, constipated, diarrhea, dysphagia, difficulty swallowing, hematemesis, melena, poor appetite, poor fluid intake, rectal bleeding, rectal pain Genitourinary: reports: others; denies: burning, dysuria, flank pain, frequency, hematuria, incontinence, pain, urgency Neurological: denies: dizziness, fainting, headache, numbness, paresthesia, seizure, weakness Musculoskeletal: denies: back pain, joint pain, joint swelling, muscle pain, muscle stiffness, neck pain Integumetry: denies: bruises, laceration, lesions, lumps, rash, wounds Physical Exam General Appearance: Moderate Distress, Obese HEENT: Normal ENT Inspection, PERRL/EOMI, Pharynx Normal Neck: Full Range of Motion, Non-Tender, Normal Inspection Respiratory: Chest Non-Tender, Lungs Clear, No Accessory Muscle Use, No Respir atory Distress, Normal Breath Sounds Cardiovascular: No Edema, Normal Peripheral Pulses, Regular Rate/Rhythm Breast Exam: Deferred Gastrointestinal: Other (Obese, Abdomen nondistended, normal bowel sounds, tympanic to percussion, soft, mild pain to LLQ palpation, Left CVA tenderness, no palpable masses.) Genitalia: Deferred Pelvic: Deferred Rectal: Deferred Extremities: Normal capillary refill, Normal inspection, Normal range of motion, Non-tender, No pedal edema Neurologic: Alert, Normal Affect, Normal Mood Cerebellar Function: Normal Reflexes: NOT DONE Skin: Normal Color Peripheral Pulses: 3+ dorsalis pedis (R), 3+ dorsalis pedis (L) Lymphatic: Other (No cervical adenopathy) Was a procedure done? Was a procedure done?: No GI differential Dx Differential Diagnosis: Cholecystitis, Diverticular disease, Gastroenteritis, Urinary Obstruction, UTI, Urolithiasis, Food Poisoning, Kidney Stone X-Ray, Labs, Meds, VS Vital Signs Date Time Temp Pulse Resp B/P (MAP) Pulse Ox O2 Delivery O2 Flow Rate FiO2 07/18/25 10:27 63 20 176/102 (126) 100 07/18/25 10:27 63 20 100 Room Air 07/18/25 08:27 97.4 76 20 165/103 97 97.4 Lab Test 07/18/25 10:33 07/18/25 09:50 Range/Units Urine Color Light-yellow Yellow Urine Clarity Clear Clear Urine pH 6.5 5.0-9.0 Urine Specific [place] 1.016 1.001-1.035 Urine Protein Negative Negative Urine Ketones Trace Negative Urine Blood Negative Negative /uL Urine Nitrite Negative Negative Urine Bilirubin Negative Negative Urine Urobilinogen Normal Negative mg/dL Urine Leukocyte Esterase Negative Negative /uL Urine RBC 1 0 - 3 /hpf Urine Microscopic WBC 1 0-3 /HPF Urine Squamous Epithelial Cells None seen <5 /hpf Urine Bacteria None seen None Seen /hpf Urine Glucose 2+ H Normal mg/dL White Blood Count 10.5 4.4-10.8 10^3/uL Red Blood Count 4.51 4.5-5.90 10^6/uL Hemoglobin 12.4 L 13.5-17.5 g/dL Hematocrit 38.1 L 41.0-53.0 % Mean Corpuscular Volume 84.4 80.0-100.0 fL Mean Corpuscular Hemoglobin 27.4 L 28.0-32.0 pg Mean Corpuscular Hemoglobin Concent 32.4 32.0-36.0 g/dL Red Cell Distribution Width 15.0 H 11.8-14.3 % Platelet Count 287 140-450 10^3/uL Mean Platelet Volume 8.3 6.9-10.8 fL Neutrophils (%) (Auto) 83.6 H 37.0-80.0 % Lymphocytes (%) (Auto) 10.1 10.0-50.0 % Monocytes (%) (Auto) 6.1 0.0-12.0 % Eosinophils (%) (Auto) 0.0 0.0-7.0 % Basophils (%) (Auto) 0.2 0.0-2.0 % Neutrophils # (Auto) 8.7 H 1.6-8.6 10 ^3/uL Lymphocytes # (Auto) 1.1 0.4-5.4 10 ^3/uL Monocytes # (Auto) 0.6 0-1.3 10 ^3/uL Eosinophils # (Auto) 0 0-0.8 10 ^3/uL Basophils # (Auto) 0 0-0.2 10 ^3/uL Nucleated Red Blood Cells 0.1 % Sodium Level 138 136-145 mmol/L Potassium Level 3.9 3.5-5.1 mmol/L Chloride Level 102 98-107 mmol/L Carbon Dioxide Level 24 20-31 mmol/L Anion Gap 12 5-15 Blood Urea Nitrogen 22 9-23 mg/dL Creatinine 1.47 H 0.700-1.30 mg/dL Glomerular Filtration Rate Calc 50 >90 mL/min BUN/Creatinine Ratio 15.0 10.0-20.0 Serum Glucose 154 H 74-106 mg/dL Calcium Level 9.5 8.7-10.4 mg/dL Dr. Cristobal: Patient personally seen and evaluated by myself. At this time agree finding and assessment by Dr. Barreto. Patient's assessment and plan has been created by myself along with Dr. Barreto Time of 1ST Reevaluation: 11:30 Reevaluation 1ST: Improved Patient Education/Counseling: Diagnosis, Treatment Family Education/Counseling: No Family Present Comments The patient presented today with chief complaint of flank pain Patient presented for evaluation yesterday due to the same chief complaint, workup showing abdominal CT with mild left hydroureteronephrosis due to 1-2 mm obstructive calculus in the left distal ureter. CBC and BMP at that time were within a normal range. UA showed microhematuria consistent with presence of ureterolithiasis present on CT. Discharged home with Flomax 0.4 mg p.o. instructions to follow up with his PCP. On evaluation, the patient seems uncomfortable due to pain and nausea, afebrile, with BP of 165/103 mmHg, other vitals are within normal range, with minimal difficulty, without other overt signs of distress Physical exam positive findings of palpation of left lower quadrant and CVA tenderness. CBC and UA were repeated to evaluate for signs of infection. BMP was repeated to evaluate renal function. CBC significant for mild anemia, UA without significant findings. BMP significant for CHARLEEN ( Creatinine 1.06 -> 1.47) The patient was given Toradol 15 mg IV for pain, Zofran 4 mg IV for nausea, and 1 bolus of 1000 cc NS On revaluation, patient states nausea and pain have improved The patient will be placed for admission due to CHARLEEN for further management and urology evaluation. I have spoken to the patient about findings, implications, and plan of care. All questions have been answered. I spoke with Dr. Heath, who states he will order Flomax and contact Dr. Prieto for possible lithotripsy. SEPSIS Sepsis Screen Date sepsis recognized/suspect: Jul 18, 2025 Time Sepsis recognized/suspect: 826 Recent Procedure: No On Antibiotic Therapy: No Respiratory Rate >20: No Heart Rate >90: No Temp<36 C (96.8 F) or >38.3 C: No SBP <90 or MAP <65 mmHG: No New Acute Mental Status Change: No Is the patient on CPAP, BIPAP,: No Physician Orders Bladder (07/18/25 12:40) Obtain Consent For: (07/18/25 13:03) Vital Signs Date Time Temp Pulse Resp B/P (MAP) Pulse Ox O2 Delivery O2 Flow Rate FiO2 07/18/25 10:27 63 20 176/102 (126) 100 07/18/25 10:27 63 20 100 Room Air 07/18/25 08:27 97.4 76 20 165/103 97 97.4 Laboratory Tests Test 07/18/25 09:50 White Blood Count 10.5 10^3/uL (4.4-10.8) Departure 1 Departure Time of Disposition: 12:24 Impression: Primary Impression: Intractable abdominal pain Additional Impression: Urolithiasis Qualified Codes: N21.8 - Other lower urinary tract calculus Disposition: 30 STILL A PATIENT Admit to: Med Surg Condition: Stable e-Prescriptions Tramadol Hcl (Tramadol Hcl) 50 Mg Tab 50 MG PO Q6HPRN PRN for 5 Days, #20 TAB 0 Refills Take as needed for severe pain. Prov: XIOMARA GARCIA DO 07/18/25 Critical Care Note Critical Care Time?: No Stability Stability form required: KHALIF Lakhani RESIDENT Jul 18, 2025 09:40 HAL CRISTOBAL MD Jul 19, 2025 18:13
[2025-07-18 10:17] LABS: Chloride 102 mmol/L (98-107); Potassium 3.9 mmol/L (3.5-5.1); Sodium 138 mmol/L (136-145)
[2025-07-18 10:18] LABS: Anion Gap 12 (5-15); Carbon Dioxide 24 mmol/L (20-31)
[2025-07-18 10:19] LABS: Calcium 9.5 mg/dL (8.7-10.4)
[2025-07-18 10:23] LABS: BUN/Creatinine Ratio 15.0 (10.0-20.0); Blood Urea Nitrogen 22 mg/dL (9-23)
[2025-07-18] MEDS: SODIUM CHLORIDE 0.9% 1,000 ML IV ONE (10:26)
[2025-07-18] MEDS: KETOROLAC TROMETH 30 MG/ML 1ML VIAL IV ONE (10:26)
[2025-07-18] MEDS: ONDANSETRON HCL 4 MG/2 ML VIAL IV ONE (10:26)
[2025-07-18 10:27] LABS: Glucose 154 mg/dL (74-106)
[2025-07-18 10:36] LABS: Hematocrit 38.1 % (41.0-53.0); Hemoglobin 12.4 g/dL (13.5-17.5); Mean Corpuscular Hemoglobin 27.4 pg (28.0-32.0); Mean Corpuscular Volume 84.4 fL (80.0-100.0); Nucleated Red Blood Cells % 0.1 %
[2025-07-18 10:58] LABS: Urine Protein, UAD Negative (Negative)
[2025-07-18] MEDS: TAMSULOSIN HYDROCHLORIDE 0.4 MG CAP PO ONE (12:26)
[2025-07-18] MEDS ORDERED: ACETAMINOPHEN IV 1000 MG/100ML (10MG/ML) IV ONE ×2 (12:30→15:45)
[2025-07-18] MEDS ORDERED: MANNITOL FTV 25% 12.5 GM/50 ML 50 ML IV ONE (12:30)
--- NOTE | 2025-07-18 12:44 | DVHINCON2 ---
Date of service: Jul 18, 2025 Referring Physician ER/Hospitalist Reason for Consultation 2 mm left distal UVJ stone Return to ER for flank pain History of Present Illness 70 year old male prior medical history of arthritis and hypertension, presents today with chief complaint of left flank pain. The patient states pain began approximately 3 days ago and is described as sharp, constant and progressively worsening, radiating from the left flank towards left groin, intensity 10/10, associated with nausea, vomiting, shortness of breath due to pain, aggravated by lying still, and slightly relieved by tramadol. He denies fever, dysuria, hematuria, chest pain, palpitations, and diarrhea. He presented yesterday to the emergency room, where abdominal CT showed presence of mild left hydroureteronephrosis due to 1-2 mm obstructive calculus in the left distal ureter, with CBC and BMP within normal range, and UA significant for microh ematuria. He was discharged with prescription for Flomax and recommendation to see his PCP for referral to Urology. However, due to persistence of pain, he returns for evaluation in the emergency department. On initial evaluation, the patient is uncomfortable due to pain, afebrile, hypertensive, other vitals within normal range, he is able to ambulate with limited difficulty, with no other overt signs of distress. Chief Complaint: Flank Pain Primary Care Provider: JENNIFER Allergies: Coded Allergies: NO KNOWN ALLERGIES (Unverified , 05/04/12) Home Meds Active Scripts Tamsulosin Hcl (Flomax) 0.4 Mg Cap, 1 CAP PO DAILY, #30 CAP Prov:TANNER MADDEN 07/17/25 Folic Acid (Folic Acid) 1 Mg Tab, 1 MG PO DAILY, #30 TAB Prov:ANGELIQUE OCHOA MD 03/15/20 Prednisone (Prednisone) 20 Mg Tab, 1 DOSE PO UD, #13 TAB Take 60mg dailyx2 days then 40mg dailyx2 days then 20mg dailyx2 days then 10mg dailyx2 days Prov:ANGELIQUE OCHOA MD 03/15/20 Ipratropium-Albuterol (Ipratropium [place]/Albut) 1 Catherine Catherine, 1 CATHERINE NEB Q6HPRN PRN, #120 DOSE Prov:ANGELIQUE OCHOA MD 03/15/20 Albuterol Sulfate (VENTOLIN MDI) 90 Mcg Ih, 90 MCG IN Q6HPRN PRN, #1 INHALER Prov:ANGELIQUE OCHOA MD 03/15/20 Doxycycline Monohydrate (Doxycycline Monohydrate) 100 Mg Tab, 100 MG PO Q12HR, #6 TAB Prov:ANGELIQUE OCHOA MD 03/15/20 Lisinopril (Lisinopril) 10 Mg Tab, 10 MG PO DAILY, #30 TAB Prov:ANGELIQUE OCHOA MD 03/15/20 Thiamine Hcl (VITAMIN B-1) 100 Mg Tb, 50 MG PO DAILY, #30 TAB Prov:ANGELIQUE OCHOA MD 03/15/20 Metoprolol Tartrate (Lopressor) 25 Mg Tb, 12.5 MG PO BID, #60 TAB Prov:ANGELIQUE OCHOA MD 03/15/20 Information Source: Patient, [facility] Medical Record Mode of Arrival: Ambulatory Timing: Days Duration: Since onset Vomitus: Food Particles, Watery Stool: Normal Severity: Moderate Recent Hx of: Urolithiasis Pain Location: Other (Left flank) Modifying Factors: Lying still Associated sign and symptoms: Nausea, Vomiting Past Medical History Arthritis, HTN Kidney stone Past Surgical History Appendectomy Surgical History (Other): Nasal polypectomy Family History: Patient reports no known family medical history. Allergies: Coded Allergies: NO KNOWN ALLERGIES (Unverified , 05/04/12) Home Meds Active Scripts Tamsulosin Hcl (Flomax) 0.4 Mg Cap, 1 CAP PO DAILY, #30 CAP Prov:TANNER MADDEN 07/17/25 Folic Acid (Folic Acid) 1 Mg Tab, 1 MG PO DAILY, #30 TAB Prov:ANGELIQUE OCHOA MD 03/15/20 Prednisone (Prednisone) 20 Mg Tab, 1 DOSE PO UD, #13 TAB Take 60mg dailyx2 days then 40mg dailyx2 days then 20mg dailyx2 days then 10mg dailyx2 days Prov:ANGELIQUE OCHOA MD 03/15/20 Ipratropium-Albuterol (Ipratropium [place]/Albut) 1 Catherine Catherine, 1 CATHERINE NEB Q6HPRN PRN, #120 DOSE Prov:ANGELIQUE OCHOA MD 03/15/20 Albuterol Sulfate (VENTOLIN MDI) 90 Mcg Ih, 90 MCG IN Q6HPRN PRN, #1 INHALER Prov:ANGELIQUE OCHOA MD 03/15/20 Doxycycline Monohydrate (Doxycycline Monohydrate) 100 Mg Tab, 100 MG PO Q12HR, #6 TAB Prov:ANGELIQUE OCHOA MD 03/15/20 Lisinopril (Lisinopril) 10 Mg Tab, 10 MG PO DAILY, #30 TAB Prov:ANGELIQUE OCHOA MD 03/15/20 Thiamine Hcl (VITAMIN B-1) 100 Mg Tb, 50 MG PO DAILY, #30 TAB Prov:ANGELIQUE OCHOA MD 03/15/20 Metoprolol Tartrate (Lopressor) 25 Mg Tb, 12.5 MG PO BID, #60 TAB Prov:ANGELIQUE OCHOA MD 03/15/20 Review of Systems Constitutional: denies: chills, diaphoresis, fatigue, fever, malaise, sweats, weakness EENTM: denies: blurred vision, double vision, ear ringing, nasal discharge, nose congestion, throat pain Respiratory: reports: shortness of breath; denies: cough, hemoptysis, orthopnea Cardiovascular: denies: chest pain, dizzy spells, diaphoresis, Dyspnea on exertion, edema, palpitations Gastrointestinal: reports: abdominal pain, nausea, vomiting; denies: abdomen distended, blood streaked bowels, constipated, diarrhea, dysphagia, difficulty swallowing, hematemesis, melena, poor appetite, poor fluid intake, rectal bleeding, rectal pain Genitourinary: reports: others; denies: burning, dysuria, flank pain, frequency, hematuria, incontinence, pain, urgency Neurological: denies: dizziness, fainting, headache, numbness, paresthesia, seizure, weakness Musculoskeletal: denies: back pain, joint pain, joint swelling, muscle pain, muscle stiffness, neck pain Integumetry: denies: bruises, laceration, lesions, lumps, rash, wounds Vital Signs Vital Signs Date Time Temp Pulse Resp B/P (MAP) Pulse Ox O2 Delivery O2 Flow Rate FiO2 07/18/25 10:27 63 20 176/102 (126) 100 07/18/25 10:27 Room Air 07/18/25 08:27 97.4 97.4 Physical Exam General Appearance: Moderate Distress, Obese HEENT: Normal ENT Inspection, PERRL/EOMI, Pharynx Normal Neck: Full Range of Motion, Non-Tender, Normal Inspection Respiratory: Chest Non-Tender, Lungs Clear, No Accessory Muscle Use, No Respiratory Distress, Normal Breath Sounds Cardiovascular: No Edema, Normal Peripheral Pulses, Regular Rate/Rhythm Breast Exam: Deferred Gastrointestinal: Other (Obese, Abdomen nondistended, normal bowel sounds, tympanic to percussion, soft, mild pain to LLQ palpation, Left CVA tenderness, no palpable masses.) Extremities: Normal capillary refill, Normal inspection, Normal range of motion, Non-tender, No pedal edema Neurologic: Alert, Normal Affect, Normal Mood Cerebellar Function: Normal Reflexes: NOT DONE Skin: Normal Color Peripheral Pulses: 3+ dorsalis pedis (R), 3+ dorsalis pedis (L) Lymphatic: Other (No cervical adenopathy) Labs/Diagnostic Data Labs Test 07/18/25 10:33 07/18/25 09:50 Range/Units Urine Color Light-yellow Yellow Urine Clarity Clear Clear Urine pH 6.5 5.0-9.0 Urine Specific [place] 1.016 1.001-1.035 Urine Protein Negative Negative Urine Ketones Trace Negative Urine Blood Negative Negative /uL Urine Nitrite Negative Negative Urine Bilirubin Negative Negative Urine Urobilinogen Normal Negative mg/dL Urine Leukocyte Esterase Negative Negative /uL Urine RBC 1 0 - 3 /hpf Urine Microscopic WBC 1 0-3 /HPF Urine Squamous Epithelial Cells None seen <5 /hpf Urine Bacteria None seen None Seen /hpf Urine Glucose 2+ H Normal mg/dL White Blood Count 10.5 4.4-10.8 10^3/uL Red Blood Count 4.51 4.5-5.90 10^6/uL Hemoglobin 12.4 L 13.5-17.5 g/dL Hematocrit 38.1 L 41.0-53.0 % Mean Corpuscular Volume 84.4 80.0-100.0 fL Mean Corpuscular Hemoglobin 27.4 L 28.0-32.0 pg Mean Corpuscular Hemoglobin Concent 32.4 32.0-36.0 g/dL Red Cell Distribution Width 15.0 H 11.8-14.3 % Platelet Count 287 140-450 10^3/uL Mean Platelet Volume 8.3 6.9-10.8 fL Neutrophils (%) (Auto) 83.6 H 37.0-80.0 % Lymphocytes (%) (Auto) 10.1 10.0-50.0 % Monocytes (%) (Auto) 6.1 0.0-12.0 % Eosinophils (%) (Auto) 0.0 0.0-7.0 % Basophils (%) (Auto) 0.2 0.0-2.0 % Neutrophils # (Auto) 8.7 H 1.6-8.6 10 ^3/uL Lymphocytes # (Auto) 1.1 0.4-5.4 10 ^3/uL Monocytes # (Auto) 0.6 0-1.3 10 ^3/uL Eosinophils # (Auto) 0 0-0.8 10 ^3/uL Basophils # (Auto) 0 0-0.2 10 ^3/uL Nucleated Red Blood Cells 0.1 % Sodium Level 138 136-145 mmol/L Potassium Level 3.9 3.5-5.1 mmol/L Chloride Level 102 98-107 mmol/L Carbon Dioxide Level 24 20-31 mmol/L Anion Gap 12 5-15 Blood Urea Nitrogen 22 9-23 mg/dL Creatinine 1.47 H 0.700-1.30 mg/dL Glomerular Filtration Rate Calc 50 >90 mL/min BUN/Creatinine Ratio 15.0 10.0-20.0 Serum Glucose 154 H 74-106 mg/dL Calcium Level 9.5 8.7-10.4 mg/dL Assessment Left UVJ stone, 2 mm Mild left hydronephrosis Azotemia- creatinine 1.47 flank pain Normal WBC Normal UA Plan/Recommendation Pain control Expulsive measures ESWL with stent placement on Monday07/22/25 as inpt if unable to control pain Plan discussed with: Patient, Other LIZETT THOMPSON MD Jul 18, 2025 12:44
--- NOTE | 2025-07-18 13:11 | DVH ---
INDICATION: left ureteral jetting TECHNIQUE: Multiple real-time grayscale transabdominal sonographic images along with color and duplex Doppler of the uterus and ovaries were obtained. COMPARISON: None FINDINGS: Bladder volume is 279.17 mL. Right ureteral jet is visualized however there is no visualized left ureteral jet. IMPRESSION: 1. Prevoid bladder volume 279.2 mL 2. Bladder wall measures 0.18 mL. 3. Visualized right ureteral jet. Left ureteral jet not visualized.
[2025-07-18] MEDS ORDERED: MORPHINE SULFATE INJ 2 MG/ml SYRG IV PRN ×2 (13:30)
[2025-07-18] MEDS ORDERED: ACETAMINOPHEN 325 MG TAB PO PRN (13:30)
[2025-07-18] MEDS ORDERED: NITROGLYCERIN 0.4 MG SL TAB SL PRN (13:30)
[2025-07-18] MEDS ORDERED: HYDROcodone-ACET 5/325MG TAB PO PRN (13:30)
[2025-07-18] MEDS ORDERED: LIDOCAINE 2% (LOCAL ANESTH.) PF 5ml SDV ONE (13:40)
[2025-07-18] MEDS ORDERED: LIDOCAINE HCL 2% TOP JELLY 5ML TOP ONE (13:40)
[2025-07-18] MEDS ORDERED: KETOROLAC TROMETH 30 MG/ML 1ML VIAL ONE (13:40)
[2025-07-18] MEDS: IOHEXOL 300 MG/ML 100ML BOTTLE IJ ONE (13:59)
[2025-07-18] MEDS ORDERED: PROPOFOL 10 MG/ML 20 ML IV ONE (14:13)
[2025-07-18] MEDS ORDERED: GLYCOPYRROLATE 0.2 MG/ML 1ML VIAL ONE (14:13)
[2025-07-18] MEDS ORDERED: ONDANSETRON HCL 4 MG/2 ML VIAL ONE (14:14)
[2025-07-18] MEDS ORDERED: KETAMINE 50mg/ML 1ml syringe ONE (14:14)
--- NOTE | 2025-07-18 14:20 | DVHHP2 ---
Admitting Diagnosis: Obstructive Uropathy History of Present Illness HPI Patient is a 70-year-old male with past medical history of hypertension, BPH who presents due to left flank pain. Patient was previously seen here the day prior for similar complaints and was found to have a 2 mm left kidney stone. Patient was discharged on Flomax and pain medication. He returned due to persistent pain. CT abdomen imaging previously done showed mild left hydronephrosis. Ultrasound of the bladder was done which showed left ureteral jet not visualized. CBC did not reveal any leukocytosis. Creatinine was noted to be 1.47 which is slightly elevated compared to previous. This was discussed with urology who recommended shockwave lithotripsy with possible stent placement. Patient was admitted for further medical management. Home Meds Active Scripts Tamsulosin Hcl (Flomax) 0.4 Mg Cap, 1 CAP PO DAILY, #30 CAP Prov:TANNER MADDEN 07/17/25 Folic Acid (Folic Acid) 1 Mg Tab, 1 MG PO DAILY, #30 TAB Prov:ANGELIQUE OCHOA MD 03/15/20 Prednisone (Prednisone) 20 Mg Tab, 1 DOSE PO UD, #13 TAB Take 60mg dailyx2 days then 40mg dailyx2 days then 20mg dailyx2 days then 10mg dailyx2 days Prov:ANGELIQUE OCHOA MD 03/15/20 Ipratropium-Albuterol (Ipratropium [place]/Albut) 1 Catherine Catherine, 1 CATHERINE NEB Q6HPRN PRN, #120 DOSE Prov:ANGELIQUE OCHOA MD 03/15/20 Albuterol Sulfate (VENTOLIN MDI) 90 Mcg Ih, 90 MCG IN Q6HPRN PRN, #1 INHALER Prov:ANGELIQUE OCHOA MD 03/15/20 Doxycycline Monohydrate (Doxycycline Monohydrate) 100 Mg Tab, 100 MG PO Q12HR, #6 TAB Prov:ANGELIQUE OCHOA MD 03/15/20 Lisinopril (Lisinopril) 10 Mg Tab, 10 MG PO DAILY, #30 TAB Prov:ANGELIQUE OCHOA MD 03/15/20 Thiamine Hcl (VITAMIN B-1) 100 Mg Tb, 50 MG PO DAILY, #30 TAB Prov:ANGELIQUE OCHOA MD 03/15/20 Metoprolol Tartrate (Lopressor) 25 Mg Tb, 12.5 MG PO BID, #60 TAB Prov:ANGELIQUE OCHOA MD 03/15/20 Past Medical History Cardiac: HTN Renal/: Benign prostatic enlarg. Patient Family History: Patient reports no known family medical history. Review of Systems Genitourinary: Pain H&P Exam Vital Signs Vital Signs Date Time Temp Pulse Resp B/P (MAP) Pulse Ox O2 Delivery O2 Flow Rate FiO2 07/18/25 10:27 63 20 176/102 (126) 100 07/18/25 10:27 Room Air 07/18/25 08:27 97.4 97.4 General Appeara: Well developed Pulmonary/Respiratory: Normal inspection, Normal breath sounds Abdominal Pain Onset Location: Flank SEPSIS Sepsis Screen Date sepsis recognized/suspect: Jul 18, 2025 Time Sepsis recognized/suspect: 826 Recent Procedure: No On Antibiotic Therapy: No Respiratory Rate >20: No Heart Rate >90: No Temp<36 C (96.8 F) or >38.3 C: No SBP <90 or MAP <65 mmHG: No New Acute Mental Status Change: No Is the patient on CPAP, BIPAP,: No Physician Orders Bladder (07/18/25 12:40) Npo (Nothing By Mouth) Diet (07/18/25 Lunch) Obtain Consent For: (07/18/25 13:03) Obtain Consent For Anesthesia (07/18/25 13:03) Admit (07/18/25 13:24) Code Status (07/18/25 13:24) Sodium Chloride 0.9% (07/18/25 13:30) Acetaminophen Tablet (Tylenol Tablet) (07/18/25 13:30) Hydrocodone-Acet 5/325mg Tab ([place] 5/32 (07/18/25 13:30) Complete Blood Count (07/19/25 04:00) Comprehensive Metabolic Panel (07/19/25 04:00) Morphine Sulfate Injection (07/18/25 13:30) Nitroglycerin Sublingual (Ntrostat Subli (07/18/25 13:30) Morphine Sulfate Injection (07/18/25 13:30) Stat Ekg For Chest Pain (07/18/25 13:24) Notify Of Changes From Base (07/18/25 13:24) Sh[employer]er For 24 Hours (07/18/25 13:24) Emergency Dysrhythmia Protocol (07/18/25 13:24) Rhythm Strips Once Every Shift (07/18/25 13:24) Oxygen By Nasal Cannula (07/18/25 13:24) * Urology Consult (07/18/25 13:27) Ekg On Admit (07/18/25 14:07) Electrocardigram (07/18/25 14:10) Vital Signs Date Time Temp Pulse Resp B/P (MAP) Pulse Ox O2 Delivery O2 Flow Rate FiO2 07/18/25 10:27 63 20 176/102 (126) 100 07/18/25 10:27 63 20 100 Room Air 07/18/25 08:27 97.4 76 20 165/103 97 97.4 Laboratory Tests Test 07/18/25 09:50 White Blood Count 10.5 10^3/uL (4.4-10.8) Medications Medications Dose Ordered Sig/[place]nd[place] Route Start Time Stop Time Status Last Admin Dose Admin Ketorolac Tromethamine 15 mg ONCE ONCE IV 07/18/25 09:45 07/18/25 09:52 DC 07/18/25 10:26 15 MG Ondansetron HCl 4 mg ONCE ONCE IV 07/18/25 09:45 07/18/25 09:52 DC 07/18/25 10:26 4 MG Sodium Chloride 1,000 ml @ 1,000 mls/hr Q1H ONCE IV 07/18/25 10:00 07/18/25 10:59 DC 07/18/25 10:26 1,000 MLS/HR Tamsulosin HCl 0.8 mg ONCE ONCE PO 07/18/25 12:15 07/18/25 12:17 DC 07/18/25 12:26 0.8 MG Labs/Xrays Labs Test 07/18/25 10:33 07/18/25 09:50 Range/Units Urine Color Light-yellow Yellow Urine Clarity Clear Clear Urine pH 6.5 5.0-9.0 Urine Specific [place] 1.016 1.001-1.035 Urine Protein Negative Negative Urine Ketones Trace Negative Urine Blood Negative Negative /uL Urine Nitrite Negative Negative Urine Bilirubin Negative Negative Urine Urobilinogen Normal Negative mg/dL Urine Leukocyte Esterase Negative Negative /uL Urine RBC 1 0 - 3 /hpf Urine Microscopic WBC 1 0-3 /HPF Urine Squamous Epithelial Cells None seen <5 /hpf Urine Bacteria None seen None Seen /hpf Urine Glucose 2+ H Normal mg/dL White Blood Count 10.5 4.4-10.8 10^3/uL Red Blood Count 4.51 4.5-5.90 10^6/uL Hemoglobin 12.4 L 13.5-17.5 g/dL Hematocrit 38.1 L 41.0-53.0 % Mean Corpuscular Volume 84.4 80.0-100.0 fL Mean Corpuscular Hemoglobin 27.4 L 28.0-32.0 pg Mean Corpuscular Hemoglobin Concent 32.4 32.0-36.0 g/dL Red Cell Distribution Width 15.0 H 11.8-14.3 % Platelet Count 287 140-450 10^3/uL Mean Platelet Volume 8.3 6.9-10.8 fL Neutrophils (%) (Auto) 83.6 H 37.0-80.0 % Lymphocytes (%) (Auto) 10.1 10.0-50.0 % Monocytes (%) (Auto) 6.1 0.0-12.0 % Eosinophils (%) (Auto) 0.0 0.0-7.0 % Basophils (%) (Auto) 0.2 0.0-2.0 % Neutrophils # (Auto) 8.7 H 1.6-8.6 10 ^3/uL Lymphocytes # (Auto) 1.1 0.4-5.4 10 ^3/uL Monocytes # (Auto) 0.6 0-1.3 10 ^3/uL Eosinophils # (Auto) 0 0-0.8 10 ^3/uL Basophils # (Auto) 0 0-0.2 10 ^3/uL Nucleated Red Blood Cells 0.1 % Sodium Level 138 136-145 mmol/L Potassium Level 3.9 3.5-5.1 mmol/L Chloride Level 102 98-107 mmol/L Carbon Dioxide Level 24 20-31 mmol/L Anion Gap 12 5-15 Blood Urea Nitrogen 22 9-23 mg/dL Creatinine 1.47 H 0.700-1.30 mg/dL Glomerular Filtration Rate Calc 50 >90 mL/min BUN/Creatinine Ratio 15.0 10.0-20.0 Serum Glucose 154 H 74-106 mg/dL Calcium Level 9.5 8.7-10.4 mg/dL Assessment/Plan Primary Diagnosis 1. Obstructive Uropathy due to Nephrolithiasis 2. CHARLEEN 3. BPH 4. Hypertension Plan: - Admit to [facility] - Urology, Dr. Prieto consulted - N.p.o. pending shockwave lithotripsy today with stent placement - Pain medications per MAR - NS at 120 mL/h - Flomax 0.4 mg daily - No antibiotics indicated at this time as no leukocytosis and UA negative for any signs of UTI - Daily CBC and BMP - Full code Plan discussed with: Other XIOMARA GARCIA DO Jul 18, 2025 14:20
[2025-07-18] MEDS ORDERED: MEPERIDINE HCL (25 MG/ML) 1ML VIAL ONE (14:41)
[2025-07-18] MEDS ORDERED: fentaNYL CITRATE 100 MCG/2 ML VL ONE (14:44)
--- NOTE | 2025-07-18 14:58 | DVHNC2 ---
Procedure - OPERATIVE REPORT Pre-op. Diagnosis: Ureteral Stone - LEFT Hydronephrosis - LEFT Flank Pain - LEFT Post-op. Diagnosis: Same as pre-op diagnosis Operation: Extracorporeal Shockwave Lithotripsy - LEFT Cystoscopy, Ureteral stent placement - LEFT Anesthesia: General Indications: Patient returns to ER on multiple occasions for left flank pain from a "2 mm distla UVJ stone" with no ureteral jetting seen on US. Informed Consent: Options were discussed. Treatments can include conservative therapy, Extra-corporeal shockwave therapy (ESWL), Ureteroscopy with laser lithotripsy vs extraction, PCNL (percutaneous nephrolithotomy); with or without the use of Stents or retrograde pyelography. Corresponding advantages and disadvantages were also discussed. Questions were addressed. Patient wishes to proceed with left ESWL and possible cystoscopy with left ureteral stent placement. Risks and benefits of the surgery were reviewed with patient which include but are not limited to infection, bleeding, urosepsis, renal hemorrhage/hematoma formation, ureteral perforation, ureteral stricture formation, need for further surgery if stone does not break, ureteral obstruction from stone fragments, cardiac arrthymia and risks of anesthesia. Despite these risks, patient wishes to proceed with the surgery. Patient fully understood and signed the consent. Details of Procedure: Under satisfactory anesthesia, the patient was positioned on the lithotripsy table. Using fluoroscopy the left ureteral stone was localized. Starting at low energy levels, shockwave treatment was commenced. The energy level was gradually increased and stone was fragmented. Once the treatment was completed, patient was then positioned in dorsal lithotomy position, prep and draped under standard fashion and cystoscopy with a 22Fr rigid cystoscope was performed. The left ureteral orifice was cannulated with a sensor tip guidewire and advanced into the left renal pelvis under fluroscopy. A [address] left Ureteral stent was then placed over the wire under Fluoroscopic and cystoscopic guidance. The bladder was emptied and the cystoscope was taken out. General anesthesia was reversed, the patient was then taken off the lithotripsy table and sent to recovery room in stable condition. Specimens: None Complications: None Findings: Stone Laterality: Left Stone Location: Ureter 2 mm stone distal Shocks Delivered: 1500 Max Power settin Fragmentation Quality: Well Ureteral stent size & length: 5x24 PL left ureteral stent Notes: F/U in 2 weeks for cystoscopy with stent removal LIZETT THOMPSON MD Jul 18, 2025 14:58
[2025-07-18 15:24] VITALS: PULSE 88; RESP 16; TEMP 97.6; O2SAT 99
[2025-07-18] MEDS: LACTATED RINGER'S 1,000 ML IV ONE (15:33)
[2025-07-18] MEDS: CIPROFLOXACIN 400MG/200ML 200 ML IV ONE (15:34)
[2025-07-18] MEDS: SODIUM CHLORIDE 0.9% 1,000 ML IV SCH (15:35)
[2025-07-18] MEDS ORDERED: HYDROmorphone HCL 2 MG/ML VL/or syr IV PRN (15:45)
[2025-07-18 16:00] VITALS: PULSE 82; RESP 15; O2SAT 100
[2025-07-18] MEDS ORDERED: TRAM50TA2 PO (16:45)
[2025-07-18] MEDS: LABETALOL HCL 20 MG/4 ML VL IV PRN (16:49)
--- NOTE | 2025-07-18 16:51 | DVHDS2 ---
Discharge Summary Date of Admission Jul 18, 2025 at 13:24 Date of Discharge: Jul 18, 2025 Labs/Diagnostic Data: Laboratory Results Test 07/18/25 10:33 07/18/25 09:50 Urine Color Light-yellow (Yellow) Urine Clarity Clear (Clear) Urine pH 6.5 (5.0-9.0) Urine Specific [place] 1.016 (1.001-1.035) Urine Protein Negative (Negative) Urine Ketones Trace (Negative) Urine Blood Negative /uL (Negative) Urine Nitrite Negative (Negative) Urine Bilirubin Negative (Negative) Urine Urobilinogen Normal mg/dL (Negative) Urine Leukocyte Esterase Negative /uL (Negative) Urine RBC 1 /hpf (0 - 3) Urine Microscopic WBC 1 /HPF (0-3) Urine Squamous Epithelial Cells None seen /hpf (<5) Urine Bacteria None seen /hpf (None Seen) Urine Glucose 2+ mg/dL (Normal) White Blood Count 10.5 10^3/uL (4.4-10.8) Red Blood Count 4.51 10^6/uL (4.5-5.90) Hemoglobin 12.4 g/dL (13.5-17.5) Hematocrit 38.1 % (41.0-53.0) Mean Corpuscular Volume 84.4 fL (80.0-100.0) Mean Corpuscular Hemoglobin 27.4 pg (28.0-32.0) Mean Corpuscular Hemoglobin Concent 32.4 g/dL (32.0-36.0) Red Cell Distribution Width 15.0 % (11.8-14.3) Platelet Count 287 10^3/uL (140-450) Mean Platelet Volume 8.3 fL (6.9-10.8) Neutrophils (%) (Auto) 83.6 % (37.0-80.0) Lymphocytes (%) (Auto) 10.1 % (10.0-50.0) Monocytes (%) (Auto) 6.1 % (0.0-12.0) Eosinophils (%) (Auto) 0.0 % (0.0-7.0) Basophils (%) (Auto) 0.2 % (0.0-2.0) Neutrophils # (Auto) 8.7 10 ^3/uL (1.6-8.6) Lymphocytes # (Auto) 1.1 10 ^3/uL (0.4-5.4) Monocytes # (Auto) 0.6 10 ^3/uL (0-1.3) Eosinophils # (Auto) 0 10 ^3/uL (0-0.8) Basophils # (Auto) 0 10 ^3/uL (0-0.2) Nucleated Red Blood Cells 0.1 % Sodium Level 138 mmol/L (136-145) Potassium Level 3.9 mmol/L (3.5-5.1) Chloride Level 102 mmol/L (98-107) Carbon Dioxide Level 24 mmol/L (20-31) Anion Gap 12 (5-15) Blood Urea Nitrogen 22 mg/dL (9-23) Creatinine 1.47 mg/dL (0.700-1.30) Glomerular Filtration Rate Calc 50 mL/min (>90) BUN/Creatinine Ratio 15.0 (10.0-20.0) Serum Glucose 154 mg/dL (74-106) Calcium Level 9.5 mg/dL (8.7-10.4) Other Laboratory Tests 07/18/25 09:50 Brief Hx & Hospital Course: Patient is a 70-year-old male with past medical history of hypertension, BPH who presents due to left flank pain. Patient was previously seen here the day prior for similar complaints and was found to have a 2 mm left kidney stone. Patient was discharged on Flomax and pain medication. He returned due to persistent pain. CT abdomen imaging previously done showed mild left hydronephrosis. Ultrasound of the bladder was done which showed left ureteral jet not visualized. CBC did not reveal any leukocytosis. Creatinine was noted to be 1.47 which is slightly elevated compared to previous. This was discussed with urology who recommended shockwave lithotripsy with possible stent placement. Patient was admitted for further medical management. Patient underwent ESWL with stent placement. He is to follow up in two weeks for stent placement removal. No antibiotics were prescribed as urinalysis did not suggest UTI. Patient was discharged on tramadol for severe pain control as needed. Patient is to avoid any NSAIDs given CHARLEEN. Tylenol okay. Patient is to have repeat BMP in one week to check renal function. Patient was monitored in PACU and subsequently noted independent urinary output. Patient denied having any pain. Patient discharged home. Follow-up to be arranged by [facility] case management. Condition at Discharge: Good Final Diagnosis/Problems List Nephrolithiasis Secondary Diagnosis: CHARLEEN Hypertension Discharge Disposition: Home Discharge Instruct/Medications Diet: Renal Activity: No Restrictions, As Tolerated Follow Up/Referral: Follow up with urology in 2 weeks for stent removal. Repeat BMP to check kidney function in 1 week. Avoid NSAIDS (Ibuprofen, Advil Aleve). Tylenol Ok. Tramadol sent for severe pain. Medications: Continue Flomax. No antibiotics required as no infection noted on urinaylsis. Stay well hydrated. Scheduled Doxycycline Monohydrate (Doxycycline Monohydrate), 100 MG PO Q12HR Folic Acid (Folic Acid), 1 MG PO DAILY Lisinopril (Lisinopril), 10 MG PO DAILY Metoprolol Tartrate (Lopressor), 12.5 MG PO BID Prednisone (Prednisone), 1 DOSE PO UD Tamsulosin Hcl (Flomax), 1 CAP PO DAILY Thiamine Hcl (Vitamin B-1), 50 MG PO DAILY Scheduled PRN Albuterol Sulfate (Ventolin Mdi), 90 MCG IN Q6HPRN PRN Ipratropium-Albuterol (Ipratropium [place]/Albut), 1 CATHERINE NEB Q6HPRN PRN Tramadol Hcl (Tramadol Hcl), 50 MG PO Q6HPRN PRN Discharge Statement: "Patient was advised to return to the ER or call 911 if any headaches, dizziness, shortness of breath, chest pain, abdominal pain, bleeding, fevers, or worsening of medical condition. Patient was counseled about treatment plan, medications, possible side effects, patientverbalized understanding. All questions were answered to the best of my ability. This discharge took greater then 30 minutes in planning, reviewing documentation, counseling the patient, and discussing with other team members." ASSESSMENT ASSESSMENT Assessment Nephrolithiasis XIOMARA GARCIA DO Jul 18, 2025 16:51
[2025-07-18 17:30] VITALS: BP 144/76; PULSE 68; RESP 16; O2SAT 97
--- NOTE | 2025-07-20 09:40 | ECG ---
[facility] Test Date: 2025-07-18 Test Time: 14:16:00 Pat Name: TOVA FIORE Department: Room: [address] [place] [address] Gender: M Bolt Header: SUNITHA : 1955 Requested By: JUAN SINGER Order Number: [id number] Reading MD: Jama Calvo Measurements Intervals Gregory Rate: 72 P: 31 PA: 168 QRS: 9 QRSD: 90 T: 37 QT: 420 QTc: 459 Interpretive Statements Normal sinus rhythm Electronically Signed On 07-21-2025 11:11:51 PST by Jama Calvo Please click the below link to view image of tracing.
== END 2025-07-18 16:51 | disposition home or self-care (01) ==
LOC: ER 08:23 → INTOOBSV 13:24 → OVERFLOW 13:24 → UNDOADMOB 13:24 → UNDODISOB 16:51
PROVIDERS: ADMIT Student in an Organized Health Care Education/Training Program; ATTEND Student in an Organized Health Care Education/Training Program
DX: N13.2 Hydronephrosis with renal and ureteral calculous obstruction (principal); I10 Essential (primary) hypertension; N17.9 Acute kidney failure, unspecified; N40.0 Benign prostatic hyperplasia without lower urinary tract symptoms; M19.90 Unspecified osteoarthritis, unspecified site; R11.2 Nausea with vomiting, unspecified; Z79.899 Other long term (current) drug therapy; Z98.890 Other specified postprocedural states
CPT/HCPCS: 36415; 50590; 52332; 76857; 80048; 81001; 85025; 93005; 96361; 96374; 96375; 99285; C1769; C2617; G0378; J0744; J1100; J1885; J2003; J2175; J2405; J2704; J3010; J7030; Q9967